=== PATIENT | male | born 1995 | race Caucasian/White ===

== ENCOUNTER 2017-02-03 23:37 | Emergency (ER) | payer BC ==
--- NOTE | 2017-02-03 23:42 | PDOC ---
History of Present Illness - General Chief Complaint: Rash Stated Complaint: RASH Time Seen by Provider: 02/03/17 23:42 - History of Present Illness Initial Comments: 02/04/17 03:46 awoke from sleep with pruritic rash never had similar one no fever/ chillss had one bite of lobster roll at lunch time no other new foods no new lotions/ perfumes no GI symptoms pmh: denies fhx: noncontrib ros: reviewed and otherwise negative oe hives on extremities and trunk nonicteric no adenopathy op-clear cta rrr abd nt nl speech, nl gait a/p allg reaction improved after anti-histamines and steroids in ED allg fu Past History - Past Medical History Allergies/Adverse Reactions: Allergies Allergy/AdvReac Type Severity Reaction Status Date / Time No Known Allergies Allergy Verified 02/03/17 23:39 Home Medications: Ambulatory Orders Diphenhydramine [Benadryl -] 50 mg NR QID PRN #12 capsule 02/04/17 Epinephrine [Epipen] 0.3 mg IM ONCE PRN #1 auto.injct 02/04/17 Prednisone [Deltasone -] 60 mg PO DAILY #6 tablet 02/04/17 GI Disorders: Yes (REFLUX) - Psycho/Social/Smoking Cessation Hx Anxiety: No Suicidal Ideation: No Smoking History: Current some day smoker Have you smoked in the past 12 months: Yes Number of Cigarettes Smoked Daily: 0 'Breaking Loose' booklet given: 02/10/14 Hx Alcohol Use: No *DC/Admit/Observation/Transfer Diagnosis at time of Disposition: Allergic reaction Qualifiers: Encounter type: initial encounter Qualified Code(s): T78.40XA - Allergy, unspecified, initial encounter - Discharge Dispostion Disposition: HOME Condition at time of disposition: Stable - Prescriptions Prescriptions: Diphenhydramine [Benadryl -] 50 mg NR QID PRN #12 capsule PRN Reason: pruritis Prednisone [Deltasone -] 60 mg PO DAILY #6 tablet Epinephrine [Epipen] 0.3 mg IM ONCE PRN #1 auto.injct PRN Reason: allergic reaction - Referrals Referrals: Latosha Mccann MD [Staff Physician] - Call tomorrow - Patient Instructions Printed Discharge Instructions: DI for General Allergic Reactions Additional Instructions: Please follow-up with an shipping receiving manager
[2017-02-03] MEDS ORDERED: methylPREDNISolone NA SUCC 125 MG/2 ML VIAL IVPB ONE (23:45)
[2017-02-03 23:46] VITALS: BP 123/65; PULSE 64; TEMP 98.3; BMI 30.1
== END 2017-02-04 00:41 | disposition home or self-care (01) ==
LOC: FER 23:37
PROC: 3E033GC Introduction of Other Therapeutic Substance into Peripheral Vein, Percutaneous Approach (ICD-10-PCS; principal; 2017-02-03)
DX: T78.40XA Allergy, unspecified, initial encounter (principal); F17.210 Nicotine dependence, cigarettes, uncomplicated
CPT/HCPCS: 99281-25

== ENCOUNTER 2019-04-30 17:29 | Emergency (ER) | payer BC, OTHER ==
--- NOTE | 2019-04-30 17:31 | PDOC ---
History of Present Illness - General Chief Complaint: Pain Stated Complaint: UPPER LEG PAIN BILATERAL 2 DAYS History Source: Patient Exam Limitations: No Limitations - History of Present Illness Initial Comments: 24 year old male with PMH HSV genital infection presented to ED for buttock pain. Pt reported he was diagnosed with his first genital HSV outbreak x72 hours ago, was testing for all other STDs including HIV which were negative, and was started on Valtrex. Pt reported improvement of lesions with Valtrex use , but had new development of pain to his bilateral buttocks, prompting him to come to the ED. Pt denied fever, chills, nausea, vomiting, diarrhea, abdominal pain. Pt reported he has not taken any oral pain medications today. Medications: Valtrex 100 mg PO daily ROS General: denied fever, chills, generalized weakness. HEENT: denied sore throat, rhinorrhea, ear pain. Cardiovascular: denied chest pain, palpitations, syncope, diaphoresis. Respiratory: denied shortness of breath, cough, sputum production, hemoptysis. Gastrointestinal: denied abdominal pain, nausea, vomiting, diarrhea, constipation, blood in stool. Genitourinary: denied dysuria, increased urinary frequency, hematuria, urinary incontinence, flank pain. Back: denied back pain. Musculoskeletal: admitted to buttock pain. denied joint pain, joint swelling. Neurological: denied headache, dizziness, numbness, tingling, weakness. Integumentary: denied rash, laceration, abrasion. Hematologic/Lymphatic: denied bruising or bleeding. PE Constitutional: Well-nourished, Well-developed, appearing stated age. HEENT: head is normocephalic, atraumatic. EOMI. PERRLA. no posterior pharyngeal erythema.no tonsillar swelling or exudates bilaterally. uvula midline. no peritonsillar swelling, tenderness or abscess. no jaw tenderness or misalignment. Neck: supple. Full ROM. Cardiovascular: regular heart rhythm. no murmurs. no pericardial friction rub. Respiratory: clear to auscultation bilaterally. no crackles, rhonchi or wheezing. no stridor. Gastrointestinal: soft, nontender. normal bowel sounds. no rebound, guarding, masses. Extremities: peripheral pulses intact. no lower extremity edema. Neurological: CN 2-12 grossly intact. moves all four extremities. Psych: awake, alert, oriented x3. follows commands. answers questions appropriately. Skin: Two 1 cm dew-drop on velia appearing lesions to right buttock. no erythema. no swelling. tenderness to palpation of bilateral buttocks, no fluctuance, no induration. perineum showing no erythema, no lesions, no swelling , no crepitus. Genital: deferred. pt denied. Past History - Past Medical History Allergies/Adverse Reactions: Allergies Allergy/AdvReac Type Severity Reaction Status Date / Time No Known Allergies Allergy Verified 02/03/17 23:39 Home Medications: Ambulatory Orders Valacyclovir HCl [Valtrex -] 1,000 mg PO BID #14 tablet 04/30/19 Valacyclovir HCl [Valtrex -] 100 mg PO DAILY 04/30/19 GI Disorders: Yes (REFLUX) - Suicide/Smoking/Psychosocial Hx Smoking History: Current some day smoker Have you smoked in the past 12 months: Yes Number of Cigarettes Smoked Daily: 0 'Breaking Loose' booklet given: 02/10/14 Hx Alcohol Use: No Drug/Substance Use Hx: No Substance Use Type: None Medical Decision Making - Medical Decision Making 24 year old male with above PMH presented to ED for buttock pain. Initial Vital Signs Temp Pulse Resp BP Pulse Ox 98.7 F 63 14 112/79 100 04/30/19 17:31 04/30/19 17:31 04/30/19 17:31 04/30/19 17:31 04/30/19 17:31 Afebrile. No tachycardia. No tachypnea. No hypotension. No hypoxia on room air. Labs ordered: none Imaging ordered: none Medications ordered: ibuprofen 600 mg PO once Expectations of HSV primary outbreak discussed with patient. Pt was underdosed on Valtrex. Prescription changed to Valtrex 1000 mg PO BID x7 days. Pt advised to take ibuprofen over the counter for pain. Pt advised to F/U with PCP. Pt discharged. *DC/Admit/Observation/Transfer Diagnosis at time of Disposition: Buttock pain, HSV infection - Discharge Dispostion Disposition: HOME Condition at time of disposition: Stable Decision to Admit order: No - Prescriptions Prescriptions: Valacyclovir HCl [Valtrex -] 1,000 mg PO BID #14 tablet - Referrals - Patient Instructions Printed Discharge Instructions: DI for Genital Herpes Additional Instructions: Take ibuprofen over the counter for pain as needed, take as advised on label. STOP taking the Valtrex you were priorly prescribed. Take the new prescription I have sent to your pharmacy. Take as advised on label. Follow up with your primary care doctor within 3 days. Your care is not complete until you follow up. Bring all paperwork given to you at your Emergency Room visits. Return to the Emergency Department for difficulty urinating, burning with urination, spreading of lesions to your abdomen/trunk/back, fever, vomiting, lightheadedness, chest pain, shortness of breath, or any other new, worsening or concerning symptoms. - Post Discharge Activity Forms/Work/School Notes: Back to Work
[2019-04-30 17:48] VITALS: BP 112/79; PULSE 63; TEMP 98.7; BMI 28.5
[2019-04-30] MEDS ORDERED: IBUPROFEN 600 MG TABLET (FP) PO ONE ×2 (17:49→17:54)
--- NOTE | 2019-04-30 18:04 | PDOC ---
Attending Attestation - Resident Resident Name: Christen Chavez - ED Attending Attestation I have performed the following: I have examined & evaluated the patient, The case was reviewed & discussed with the resident, I agree w/resident's findings & plan, Exceptions are as noted - HPI HPI: 04/30/19 18:01 24 M with no PMH presents to ED with painful rash to genitals. Pt states that he was diagnosed with genital herpes 3 days ago. He was prescribed valtrex 100mg daily, which he has been taking. His partner also has genital herpes and was prescribed 250mg daily. He reports that the lesions have stopped appearing, and the rash seems to be improving. However, he notes that he is having persistent pain radiating from his penis to his buttocks. Denies any fevers. Denies dysuria. - Physicial Exam PE: 04/30/19 18:03 "GENERAL: Awake, alert, and fully oriented, in no acute distress. HEAD: No signs of trauma EYES: PERRLA, EOMI, sclera anicteric, conjunctiva clear ENT: Auricles normal inspection, hearing grossly normal, nares patent, oropharynx clear without exudates. Moist mucosa NECK: Nontender, no stepoffs, Normal ROM, supple, no lymphadenopathy, JVD, or masses LUNGS: Breath sounds equal, clear to auscultation bilaterally. No wheezes, and no crackles HEART: Regular rate and rhythm, normal S1 and S2, no murmurs, rubs or gallops ABDOMEN: Soft, nontender, normoactive bowel sounds. No guarding, no rebound. No masses EXTREMITIES: Normal range of motion, no edema. No clubbing or cyanosis. No cords, erythema, or tenderness NEUROLOGICAL: Cranial nerves II through XII intact. 5/5 strength and sensation in all extremities, Normal speech, normal gait, normal cerebellar function SKIN: Warm, Dry, normal turgor, no rashes or lesions noted. : + multiple vesicles on penis shaft - Medical Decision Making 04/30/19 18:03 24 M with genital herpes. Pt taking valtrex but is likely underdosing (is on 100mg daily). - Increase dosage to 1000mg BID (this is pt's first flare) Pt is well appearing, with normal vitals. Clinically stable for DC at this time. I discussed the physical exam findings, ancillary test results and final diagnoses with the patient. I answered all of the patient's questions. The patient was satisfied with the care received and felt comfortable with the discharge plan and treatment plan. The patient agrees to follow up with the primary care physician within 24-72 hours.
== END 2019-04-30 18:11 | disposition home or self-care (01) ==
LOC: FER 17:29
DX: M79.10 Myalgia, unspecified site (principal); B00.9 Herpesviral infection, unspecified; F17.210 Nicotine dependence, cigarettes, uncomplicated; K21.9 Gastro-esophageal reflux disease without esophagitis
CPT/HCPCS: 99281-25

== ENCOUNTER 2020-02-29 17:40 | Emergency (ER) | payer OTHER ==
[2020-02-29 18:10] VITALS: BP 137/88; PULSE 57; TEMP 98.3; BMI 30.2
[2020-02-29] MEDS ORDERED: FAMOTIDINE 20 MG/50 ML IVPB 20 MG/50 ML MG IVPB ONE ×2 (18:18→18:24)
[2020-02-29] MEDS ORDERED: LACTATED RINGERS SOLUTION 1000 ML INFUS.BAG IV ONE (18:18)
--- NOTE | 2020-02-29 18:20 | PDOC ---
Documentation entered by Shanon Lynn SCRIBE, acting as scribe for Soheila Edwards DO. Soheila Edwards DO: This documentation has been prepared by the [email or web address], Shanon Lynn SCRIBE, under my direction and personally reviewed by me in its entirety. I confirm that the documentation accurately reflects all work, treatment, procedures, and medical decision making performed by me. History of Present Illness - General Chief Complaint: Pain Stated Complaint: ABD PAIN Time Seen by Provider: 02/29/20 18:07 History Source: Patient Exam Limitations: No Limitations - History of Present Illness Initial Comments: 02/29/20 18:54 The patient is a 24-year-old male with no reported past medical history who presents to the emergency department with abdominal pain, vomiting, and diarrhea. The patient reports he had an onset of upper/epigastric pain this morning, associated with nausea and vomiting. The patient reports episodes of nonbloody vomiting with episodes of bilious vomiting towards the end. The patient reports he was away for the weekend with his friends report heavy alcohol use. The patient denies vomiting over the weekend, but reports he did have episodes of loose stool. The patient reports his last bowel movement was this afternoon, reports his last solid stool movement was prior to the weekend. The patient reports following up at [facility], from where the patient was referred to the ER for possible inflammation secondary to heavy drinking over the weekend. The patient reports he was given ondansetron for nausea, reports taking an 8mg dose at 5:10 pm, with nausea relief. Denies known exposure to COVID. Denies chest pain or shortness of breath. Denies daily medication use. The patient reports daily use of alpha brain, CLA, multivitamins, and test boosters. Allergies: NKA PCP: Dr. Martinez. Past History - Medical History Allergies/Adverse Reactions: Allergies Allergy/AdvReac Type Severity Reaction Status Date / Time No Known Allergies Allergy Verified 02/29/20 17:41 Home Medications: Ambulatory Orders Valacyclovir HCl [Valtrex -] 1,000 mg PO BID #14 tablet 04/30/19 Valacyclovir HCl [Valtrex -] 100 mg PO DAILY 04/30/19 COPD: No GI Disorders: Yes (REFLUX) Other medical history: HSV2 - Psycho-Social/Smoking History Smoking History: Never smoked Have you smoked in the past 12 months: Yes Number of Cigarettes Smoked Daily: 0 Information on smoking cessation initiated: No 'Breaking Loose' booklet given: 02/10/14 - Substance Abuse Hx (Audit-C & DAST Scrn) How often the patient has a drink containing alcohol: Never Score: In Men: 4 or > Positive; In Women: 3 or > Positive: 0 Screen Result (Pos requires Nsg. Audit-10AR): Negative In the last yr the pt used illegal drug/Rx for NonMed reason: No Score: Yes response is considered Positive: 0 Screen Result (Positive result requires Nsg. DAST-10): Negative Review of Systems - Review of Systems Able to Perform ROS?: Yes Comments:: 02/29/20 18:55 GENERAL/CONSTITUTIONAL: No fever or chills. No weakness. HEAD, EYES, EARS, NOSE AND THROAT: No change in vision. No ear pain or discharge. No sore throat. CARDIOVASCULAR: No chest pain or shortness of breath. RESPIRATORY: No cough, wheezing, or hemoptysis. GASTROINTESTINAL: +abdominal pain, nausea, vomiting and diarrhea. No constipation. GENITOURINARY: No dysuria, frequency, or change in urination. MUSCULOSKELETAL: No joint or muscle swelling or pain. No neck or back pain. SKIN: No rash NEUROLOGIC: No headache, vertigo, loss of consciousness, or change in strength/sensation. ENDOCRINE: No increased thirst. No abnormal weight change. HEMATOLOGIC/LYMPHATIC: No anemia, easy bleeding, or history of blood clots. ALLERGIC/IMMUNOLOGIC: No hives or skin allergy. *Physical Exam - Vital Signs Last Vital Signs Temp Pulse Resp BP Pulse Ox 98.3 F 57 L 18 137/88 100 02/29/20 17:40 02/29/20 17:40 02/29/20 17:40 02/29/20 17:40 02/29/20 17:40 - Physical Exam 02/29/20 18:56 GENERAL: Awake, alert, and fully oriented, in no acute distress HEAD: No signs of trauma EYES: PERRLA, EOMI, sclera anicteric, conjunctiva clear ENT: Auricles normal inspection, hearing grossly normal, nares patent, oropharynx clear without exudates. +Dry mucous membrane. NECK: Normal ROM, supple, no lymphadenopathy, JVD, or masses LUNGS: Breath sounds equal, clear to auscultation bilaterally. No wheezes, and no crackles HEART: Regular rate and rhythm, normal S1 and S2, no murmurs, rubs or gallops ABDOMEN: +mild epigastric tenderness. Soft, nondistended. No guarding, no rebound. No masses EXTREMITIES: Normal range of motion, no edema. No clubbing or cyanosis. No cords, erythema, or tenderness NEUROLOGICAL: No tremors or tongue fasciculation. Cranial nerves II through XII grossly intact. Normal speech, normal gait SKIN: Warm, Dry, normal turgor, no rashes or lesions noted. ED Treatment Course - LABORATORY CBC & Chemistry Diagram: 02/29/20 18:30 02/29/20 18:30 Medical Decision Making - Medical Decision Making 02/29/20 18:18 a/p: 24yo male with etoh use this weekend -drinking with friends all weekend for the holiday -n/v today with abd pain -nonbloody vomitus, 1 episode of bilious vomiting -no melena, c/o diarrhea -epigastric abd pain, will send labs, concern for etoh gastritis vs pancreatitis -will hydrate, medicate - pt received 8mg zofran at [facility] prior to arrival and nausea resolved -will monitor and reassess -pt is nontoxic in appearance 02/29/20 19:07 pt states feeling better pt with RUQ ttp, elevated lft and tbili ruq ultrasound ordered pt will be signed out to the oncoming ED physician pending ultrasound and po challenge Discharge - Discharge Information Problems reviewed: Yes Clinical Impression/Diagnosis: Alcohol use disorder Condition: Stable - Follow up/Referral - Patient Discharge Instructions - Post Discharge Activity
[2020-02-29 19:00] LABS: ALBUMIN 4.6 g/dl (3.4-5.0); BILIRUBIN,TOTAL 1.9 mg/dl (0.2-1); CALCIUM 9.5 mg/dl (8.5-10); EOS % 0.7 % (0-4.5); MCH 30.9 pg (25.7-33.7); POTASSIUM 4.2 mmol/L (3.5-5.1)
[2020-02-29 19:20] LABS: BASO % 0.6 % (0-2.0); HEMATOCRIT 48.4 % (35.4-49); HEMOGLOBIN 16.8 GM/dl (11.7-16.9); LYMPH % 21.2 % (8-40); MCHC 34.6 g/dl (32.0-35.9); MEAN CELL VOLUME 89.2 fl (80-96); MEAN PLT VOLUME 10.1 fl (7.5-11.1); MONO % 7.1 % (3.8-10.2); NEUT % 70.4 % (42.8-82.8); PLATELET COUNT 174 K/MM3 (134-434); RBC 5.43 M/mm3 (4.00-5.60); RDW 11.7 % (11.9-15.9); WHITE BLOOD COUNT 8.9 K/mm3 (4.0-10.8)
--- NOTE | 2020-02-29 20:23 | PDOC ---
*Physical Exam - Vital Signs Last Vital Signs Temp Pulse Resp BP Pulse Ox 98.3 F 57 L 18 137/88 100 02/29/20 17:40 02/29/20 17:40 02/29/20 17:40 02/29/20 17:40 02/29/20 17:40 ED Treatment Course - LABORATORY CBC & Chemistry Diagram: 02/29/20 18:30 02/29/20 18:30 - ADDITIONAL ORDERS Additional order review: Laboratory Results 02/29/20 18:30 Sodium 138 Potassium 4.2 Chloride 99 Carbon Dioxide 28 Anion Gap 11 BUN 11.0 Creatinine 1.0 Est GFR (CKD-EPI)AfAm 119.86 Est GFR (CKD-EPI)NonAf 103.41 Random Glucose 129 H Calcium 9.5 Total Bilirubin 1.9 H AST 72 H ALT 62 H Alkaline Phosphatase 60 Total Protein 8.0 Albumin 4.6 Lipase 74 02/29/20 18:30 RBC 5.43 MCV 89.2 MCHC 34.6 RDW 11.7 L MPV 10.1 Neutrophils % 70.4 Lymphocytes % 21.2 Monocytes % 7.1 Eosinophils % 0.7 Basophils % 0.6 - Medications Given in the ED: ED Medications Discontinued Medications Generic Name Dose Route Start Last Admin Trade Name Freq PRN Reason Stop Dose Admin Famotidine/Sodium Chloride 20 mg in 50 mls @ 100 mls/hr 02/29/20 18:18 02/29/20 18:35 Pepcid 20 Mg Premixed Ivpb - IVPB 02/29/20 18:47 100 mls/hr ONCE ONE Administration Lactated Ringer's 1,000 ml 02/29/20 18:18 02/29/20 18:34 Lactated Ringers Solution IV 02/29/20 18:19 1,000 ml ONCE ONE Administration ED Progress Note - Progress Note Progress Note: Care of this patient received from Dr. Edwards Gallbladder ultrasound was ordered to evaluate elevation of bilirubin and transaminases. No evidence of gallbladder , biliary duct, CBD pathology. There is evidence of hepatomegaly with coarse texture of liver parenchyma but no other specific abnormalities of the liver. Results discussed with the patient and his family. Patient continues to feel comfortable without recurrence of initial symptoms. Patient will be discharged with prescription for Pepcid 40 mg daily. He should avoid excessive alcohol intake. He should follow-up with his PMD, and return to the ER if he has recurrence of severe pain, nausea/vomiting or if he develops fever Discharge - Discharge Information Problems reviewed: Yes Clinical Impression/Diagnosis: Alcohol use disorder Gastritis Qualifiers: Gastritis type: unspecified gastritis Chronicity: acute Gastritis bleeding: without bleeding Qualified Code(s): K29.00 - Acute gastritis without bleeding Condition: Stable Disposition: HOME - Additional Discharge Information Prescriptions: Famotidine [Pepcid -] 40 mg PO DAILY #14 tablet - Follow up/Referral - Patient Discharge Instructions Patient Printed Discharge Instructions: Gastritis Additional Instructions: Pepcid 40 mg daily for the next 2 weeks Avoid excessive alcohol use Return to ER if you have severe pain, vomiting or fever Contact your doctor to discuss today's ER visit and follow-up as arranged - Post Discharge Activity
== END 2020-02-29 21:12 | disposition home or self-care (01) ==
LOC: FER 17:40
PROC: 3E033GC Introduction of Other Therapeutic Substance into Peripheral Vein, Percutaneous Approach (ICD-10-PCS; principal; 2020-02-29)
DX: K29.00 Acute gastritis without bleeding (principal); F10.99 Alcohol use, unspecified with unspecified alcohol-induced disorder
CPT/HCPCS: 36415; 71045-TC-FY; 76705-TC; 80053; 83690; 85025; 99284-25